=== PATIENT | female | born 1960 | race Caucasian/White ===

== ENCOUNTER 2018-01-11 07:11 | Inpatient (IN) | payer MEDICARE, OTHER ==
[~2018-01-11] VITALS: Ht 152.4 cm; Wt 39.0 kg
[2018-01-11] MEDS ORDERED: ONDANSETRON ODT 4 MG TAB.RAPDIS SL ONE (07:45)
[2018-01-11] MEDS ORDERED: ONDANSETRON ODT 4 MG TAB.RAPDIS ONE (07:51)
[2018-01-11 08:15] VITALS: BP 94/68
[2018-01-11] MEDS ORDERED: MAG HYDROX/AL HYDROX/SIMETH 30 ML LIQUID UDC PO PRN (08:30)
[2018-01-11] MEDS ORDERED: MAGNESIUM HYDROXIDE 30 ML LIQUID UDC PO PRN (08:30)
[2018-01-11] MEDS ORDERED: LORAZEPAM 0.5 MG TABLET PO PRN (08:30)
[2018-01-11] MEDS ORDERED: TEMAZEPAM 7.5 MG CAPSULE PO PRN (08:30)
[2018-01-11] MEDS: CLONAZEPAM 0.5 MG TABLET PO SCH ×3 (10:38→16:59)
[2018-01-11] MEDS: GABAPENTIN 100 MG CAPSULE PO SCH ×3 (10:38→16:59)
[2018-01-11] MEDS: FLUOXETINE HCL 20 MG CAPSULE PO SCH (10:41)
[2018-01-11] MEDS: NICOTINE 14 MG/24HR PATCH TD SCH (14:35)
[2018-01-11 16:00] VITALS: BP 101/67
[2018-01-11] MEDS: ACETAMINOPHEN 325 MG TABLET PO PRN (16:02)
[2018-01-11 20:01] VITALS: BP 101/64
[2018-01-11] MEDS: TRAZODONE 100 MG TABLET PO SCH (20:11)
[2018-01-11 20:57] LABS: *BILIRUBIN,URIN NEGATIVE (NEGATIVE); *BLOOD, URINE NEGATIVE (NEGATIVE); *COLOR,URINE YELLOW (YELLOW); *KETONES,URINE TRACE (NEGATIVE); *PROTEIN,URINE 1+ (NEGATIVE); *UROBILINOGEN,URINE 0.2 E.U./dl (NORMAL); LEUKOCYTE ESTERASE ,URINE NEGATIVE (NEGATIVE); NITRITE, URINE NEGATIVE (NEGATIVE); UGLUCOSE NEGATIVE (NEGATIVE)
[2018-01-11 21:22] LABS: *CLARITY,URINE SLIGHTLY HAZY (CLEAR)
[2018-01-11 21:25] LABS: BACTERIA,URINE FEW /HPF (NONE SEEN); CALCIUM OXALATE CRYSTALS,UR MODERATE /HPF (NONE SEEN); SQUAMOUS EPITHELIAL CELL,UR MODERATE /HPF (NONE SEEN)
[2018-01-11 21:26] LABS: MUCUS,URINE MANY /LPF (0-FEW)
[2018-01-12] MEDS: HYDROXYZINE PAMOATE 25 MG CAPSULE PO PRN (01:50)
[2018-01-12 07:30] VITALS: BP 91/56
[2018-01-12 07:59] LABS: BASOPHILS % (AUTO) 0.7 % (0.0-2.0); EOSINOPHILS # (AUTO) 0.1 K/uL (0.0-0.7); EOSINOPHILS % (AUTO) 1.2 % (0.0-7.0); HEMATOCRIT 33.6 % (31.2-41.9); HEMOGLOBIN 11.7 g/dL (10.9-14.3); LYMPHOCYTES # (AUTO) 1.8 K/uL (20.0-40.0); LYMPHOCYTES % (AUTO) 36.5 % (20.5-51.5); MEAN CORPUSCULAR HGB CONC 35 g/dL (32.3-35.6); MEAN CORPUSCULAR VOLUME 86.4 fL (75.5-95.3); MONOCYTES # (AUTO) 0.4 K/uL (2.0-10.0); MONOCYTES % (AUTO) 7.6 % (0.0-11.0); NEUTROPHILS # (AUTO) 2.6 K/uL (1.8-8.9); PLATELET COUNT (AUTO) 217 K/uL (179-408); RED BLOOD CELL COUNT(AUTO) 3.89 MIL/uL (3.63-4.92); WHITE BLOOD COUNT (AUTO) 4.9 K/uL (3.8-11.8)
[2018-01-12] MEDS: NICOTINE 14 MG/24HR PATCH TD SCH (08:13)
[2018-01-12] MEDS: FLUOXETINE HCL 20 MG CAPSULE PO SCH (08:14)
[2018-01-12] MEDS: CLONAZEPAM 0.5 MG TABLET PO SCH ×3 (08:14→16:31)
[2018-01-12] MEDS: GABAPENTIN 100 MG CAPSULE PO SCH (08:14)
[2018-01-12 08:41] LABS: BILIRUBIN,TOTAL 0.1 mg/dL (0.2-1.0); CREATININE 0.6 mg/dL (0.6-1.3); MAGNESIUM 1.8 mg/dL (1.8-2.4); PHOSPHOROUS 2.7 mg/dL (2.5-4.9); POTASSIUM 3.8 mmol/L (3.5-5.1); TOTAL PROTEIN, SERUM 5.6 g/dL (6.4-8.2)
[2018-01-12 09:34] LABS: THYROID STIMULATING HORMONE 0.876 mIU/mL (0.358-3.740)
[2018-01-12] MEDS: SULFAMETH/TRIMETH 800/160 MG TABLET PO SCH ×2 (12:34→21:14)
[2018-01-12] MEDS ORDERED: HYDROCODONE/APAP 5-325MG TABLET PO PRN (13:45)
[2018-01-12 14:48] VITALS: BP 93/50
[2018-01-12] MEDS: GABAPENTIN 300 MG CAPSULE PO SCH (16:43)
[2018-01-12] MEDS ORDERED: GABAPENTIN 100 MG CAPSULE PO SCH (17:00)
[2018-01-12] MEDS: TRAZODONE 100 MG TABLET PO SCH (21:14)
[2018-01-12] MEDS: ASPIRIN EC 81 MG TABLET.DR PO SCH (21:26)
[2018-01-12 21:35] VITALS: BP 96/66
[2018-01-13] MEDS: HYDROXYZINE PAMOATE 25 MG CAPSULE PO PRN (05:12)
[2018-01-13] MEDS: NICOTINE 14 MG/24HR PATCH TD SCH (08:14)
[2018-01-13] MEDS: CLONAZEPAM 0.5 MG TABLET PO SCH ×3 (08:15→17:07)
[2018-01-13] MEDS: ASPIRIN EC 81 MG TABLET.DR PO SCH (08:15)
[2018-01-13] MEDS: GABAPENTIN 300 MG CAPSULE PO SCH ×2 (08:15→17:49)
[2018-01-13] MEDS: SULFAMETH/TRIMETH 800/160 MG TABLET PO SCH ×2 (08:15→20:39)
[2018-01-13] MEDS: FLUOXETINE HCL 20 MG CAPSULE PO SCH (08:16)
[2018-01-13] MEDS ORDERED: IBUPROFEN 400 MG TABLET PO PRN (13:45)
[2018-01-13] MEDS ORDERED: DOCUSATE SODIUM 100 MG CAPSULE PO SCH (13:45)
[2018-01-13 15:32] VITALS: BP 92/61
[2018-01-13] MEDS: TRAZODONE 100 MG TABLET PO SCH (20:39)
[2018-01-13 21:58] VITALS: BP 107/65
[2018-01-14] MEDS: HYDROXYZINE PAMOATE 25 MG CAPSULE PO PRN ×3 (04:23→22:47)
[2018-01-14 07:46] VITALS: BP 103/70
[2018-01-14] MEDS: NICOTINE 14 MG/24HR PATCH TD SCH (08:01)
[2018-01-14] MEDS: CLONAZEPAM 0.5 MG TABLET PO SCH ×3 (08:02→17:10)
[2018-01-14] MEDS: ASPIRIN EC 81 MG TABLET.DR PO SCH (08:02)
[2018-01-14] MEDS: DOCUSATE SODIUM 100 MG CAPSULE PO SCH (08:02)
[2018-01-14] MEDS: FLUOXETINE HCL 20 MG CAPSULE PO SCH (08:02)
[2018-01-14] MEDS: GABAPENTIN 300 MG CAPSULE PO SCH ×3 (08:02→17:10)
[2018-01-14] MEDS: SULFAMETH/TRIMETH 800/160 MG TABLET PO SCH ×2 (08:02→20:19)
[2018-01-14 16:59] VITALS: BP 87/55
[2018-01-14] MEDS ORDERED: BISACODYL 10 MG SUPP.RECT RC ONE (17:30)
[2018-01-14] MEDS ORDERED: MAGNESIUM HYDROXIDE 30 ML LIQUID UDC PO ONE (17:30)
[2018-01-14 20:19] VITALS: BP 102/62
[2018-01-14] MEDS: TRAZODONE 100 MG TABLET PO SCH (20:20)
[2018-01-14] MEDS: ACETAMINOPHEN 325 MG TABLET PO PRN (22:48)
[2018-01-15] MEDS: HYDROXYZINE PAMOATE 25 MG CAPSULE PO PRN ×3 (06:57→18:56)
[2018-01-15 07:30] VITALS: BP 107/62
[2018-01-15] MEDS: FLUOXETINE HCL 20 MG CAPSULE PO SCH (08:23)
[2018-01-15] MEDS: SULFAMETH/TRIMETH 800/160 MG TABLET PO SCH ×2 (08:23→21:34)
[2018-01-15] MEDS: GABAPENTIN 300 MG CAPSULE PO SCH ×3 (08:23→17:25)
[2018-01-15] MEDS: CLONAZEPAM 0.5 MG TABLET PO SCH ×3 (08:23→17:25)
[2018-01-15] MEDS: NICOTINE 14 MG/24HR PATCH TD SCH (08:23)
[2018-01-15] MEDS: DOCUSATE SODIUM 100 MG CAPSULE PO SCH ×2 (08:23→21:34)
[2018-01-15 11:43] VITALS: BP 95/63
[2018-01-15 15:34] VITALS: BP 74/46
[2018-01-15] MEDS ORDERED: SENNOSIDES 1 TABLET PO ONE (18:15)
[2018-01-15 20:34] VITALS: BP 101/60
[2018-01-15] MEDS: TRAZODONE 100 MG TABLET PO SCH (21:34)
[2018-01-16] MEDS: HYDROXYZINE PAMOATE 25 MG CAPSULE PO PRN ×2 (02:01→14:11)
[2018-01-16 07:30] VITALS: BP 81/50
[2018-01-16] MEDS: FLUOXETINE HCL 20 MG CAPSULE PO SCH (08:18)
[2018-01-16] MEDS: SULFAMETH/TRIMETH 800/160 MG TABLET PO SCH ×2 (08:19→20:14)
[2018-01-16] MEDS: GABAPENTIN 300 MG CAPSULE PO SCH ×3 (08:19→16:14)
[2018-01-16] MEDS: NICOTINE 14 MG/24HR PATCH TD SCH (08:19)
[2018-01-16] MEDS: DOCUSATE SODIUM 100 MG CAPSULE PO SCH ×2 (08:19→20:13)
[2018-01-16] MEDS: CLONAZEPAM 0.5 MG TABLET PO SCH ×3 (08:20→16:14)
[2018-01-16 15:36] VITALS: BP 84/56
[2018-01-16] MEDS ORDERED: BISACODYL 10 MG SUPP.RECT RC ONE (16:30)
[2018-01-16] MEDS ORDERED: LACTULOSE 20 G/30 ML LIQUID UDC PO ONE (16:30)
[2018-01-16] MEDS ORDERED: BISACODYL 10 MG SUPP.RECT RC PRN (17:45)
[2018-01-16] MEDS ORDERED: LACTULOSE 20 G/30 ML LIQUID UDC PO SCH (17:45)
[2018-01-16] MEDS: TRAZODONE 100 MG TABLET PO SCH (20:13)
[2018-01-16 20:20] VITALS: BP 82/56
[2018-01-17] MEDS: HYDROXYZINE PAMOATE 25 MG CAPSULE PO PRN ×2 (01:33→11:02)
[2018-01-17 07:24] LABS: BASOPHILS % (AUTO) 1.1 % (0.0-2.0); EOSINOPHILS % (AUTO) 1.1 % (0.0-7.0); HEMATOCRIT 35.8 % (31.2-41.9); HEMOGLOBIN 12.1 g/dL (10.9-14.3); LYMPHOCYTES # (AUTO) 1.6 K/uL (20.0-40.0); MEAN CORPUSCULAR HEMOGLOBIN 29.7 uug (24.7-32.8); MEAN CORPUSCULAR HGB CONC 34 g/dL (32.3-35.6); MEAN CORPUSCULAR VOLUME 87.6 fL (75.5-95.3); MONOCYTES # (AUTO) 0.3 K/uL (2.0-10.0); MONOCYTES % (AUTO) 8.3 % (0.0-11.0); NEUTROPHILS # (AUTO) 1.9 K/uL (1.8-8.9); NEUTROPHILS % (AUTO) 48.5 % (38.5-71.5); PLATELET COUNT (AUTO) 195 K/uL (179-408); RED BLOOD CELL COUNT(AUTO) 4.08 MIL/uL (3.63-4.92)
[2018-01-17 07:30] VITALS: BP 89/59
[2018-01-17 07:51] LABS: BILIRUBIN,TOTAL 0.2 mg/dL (0.2-1.0); CREATININE 0.8 mg/dL (0.6-1.3); MAGNESIUM 2.2 mg/dL (1.8-2.4); PHOSPHOROUS 5.1 mg/dL (2.5-4.9); POTASSIUM 4.8 mmol/L (3.5-5.1)
[2018-01-17] MEDS: DOCUSATE SODIUM 100 MG CAPSULE PO SCH ×2 (08:39→20:20)
[2018-01-17] MEDS: FLUOXETINE HCL 20 MG CAPSULE PO SCH (08:39)
[2018-01-17] MEDS: NICOTINE 14 MG/24HR PATCH TD SCH (08:39)
[2018-01-17] MEDS: GABAPENTIN 300 MG CAPSULE PO SCH ×3 (08:39→18:00)
[2018-01-17] MEDS: CLONAZEPAM 0.5 MG TABLET PO SCH ×3 (08:39→18:00)
[2018-01-17] MEDS: SULFAMETH/TRIMETH 800/160 MG TABLET PO SCH (08:39)
[2018-01-17 15:33] VITALS: BP 86/57
[2018-01-17 20:09] VITALS: BP 87/57
[2018-01-17] MEDS: TRAZODONE 100 MG TABLET PO SCH (20:20)
[2018-01-18] MEDS: HYDROXYZINE PAMOATE 25 MG CAPSULE PO PRN (05:59)
[2018-01-18 07:30] VITALS: BP 94/64
[2018-01-18 07:40] LABS: CREATININE 0.8 mg/dL (0.6-1.3); PHOSPHOROUS 4.4 mg/dL (2.5-4.9); POTASSIUM 4.6 mmol/L (3.5-5.1)
[2018-01-18] MEDS: NICOTINE 14 MG/24HR PATCH TD SCH (08:08)
[2018-01-18] MEDS: FLUOXETINE HCL 20 MG CAPSULE PO SCH (08:09)
[2018-01-18] MEDS: CLONAZEPAM 0.5 MG TABLET PO SCH (08:09)
[2018-01-18] MEDS: DOCUSATE SODIUM 100 MG CAPSULE PO SCH (08:09)
[2018-01-18] MEDS: GABAPENTIN 300 MG CAPSULE PO SCH (08:09)
== END 2018-01-18 11:15 | disposition home or self-care (01) | DRG 885 ==
LOC: ER 07:11 → GPS 08:03
PROVIDERS: ADMIT Psychiatry & Neurology Psychiatry; ATTEND Internal Medicine
DX: F33.2 Major depressive disorder, recurrent severe without psychotic features (principal); F50.02 Anorexia nervosa, binge eating/purging type; E46 Unspecified protein-calorie malnutrition; N39.0 Urinary tract infection, site not specified; E87.1 Hypo-osmolality and hyponatremia; Z68.1 Body mass index [BMI] 19.9 or less, adult; F17.210 Nicotine dependence, cigarettes, uncomplicated; T42.4X2D Poisoning by benzodiazepines, intentional self-harm, subsequent encounter; T47 Poisoning by, adverse effect of and underdosing of agents primarily affecting the gastrointestinal system; F42.9 Obsessive-compulsive disorder, unspecified; K59.00 Constipation, unspecified; E83.39 Other disorders of phosphorus metabolism
CPT/HCPCS: 36415; 70030-TC; 74018; 83735; 84100; 84443; 85025; 87086; 93005; A4663; Q0162